=== PATIENT | female | born 1995 | race Caucasian/White ===

== ENCOUNTER 2017-04-21 13:09 | Emergency (ER) | payer OTHER ==
--- NOTE | 2017-04-21 15:44 | RAD ---
INDICATION: Concussion 2 weeks ago COMPARISON: None TECHNIQUE: Noncontrast axial source images were acquired from the skull base to the vertex. FINDINGS: Ventricles/sulci: The ventricles and cisterns are normal in size and configuration for age. Brain parenchyma: There is no focal parenchymal finding, evidence of intracranial mass, or intracranial mass effect. Intracranial hemorrhage:None. Extra-axial spaces: There are no abnormal extra axial fluid collections or evidence of extra-axial mass. Calvarium: There is no calvarial fracture or other calvarial abnormality. Scalp: There is no evidence of scalp or extracalvarial soft tissue abnormality. Paranasal sinuses/mastoid: The paranasal sinuses and mastoid air cells are clear. Other: None. IMPRESSION: NEGATIVE EXAMINATION
--- NOTE | 2017-04-21 16:02 | ED ---
Head Injury - HPI Summary HPI Summary: 21 female presents to ED with complaints of intermittent headache and nausea after a head injury that occurred 2.5 weeks ago. Patient states she was walking down stairs at her home when she slipped and hit her head as she was falling down the stairs and then again at the bottom. She hit the right side and back of her head. States the pain in her head comes and goes and described as sharp and shooting,. Also admits to having nausea. Denies vomiting. States she did not lose consciousness when incident occurred, however she did "black out" and felt very dizzy upon getting up. Those symptoms improved shortly after incident. Patient denies any trouble concentrating or memory loss. Does state she has been studying for [employer] for the past week and noticed symptoms have seemed to worsen since then. Has taken advil with some relief a few days ago. Currently is feeling ok. Patient states she talked to her professor who is a brain institute scientist who recommended she be evaluated and have CT. No other complaints. No PMHx. Takes OCP. Denies anticoagulants, tinnitus and vision changes, photophobia. - History Of Current Complaint Chief Complaint: EDHeadache Stated Complaint: HEADACHE,NAUSSA Time Seen by Provider: 04/21/17 13:22 Hx Obtained From: Patient Mechanism Of Injury: Blunt Trauma Onset/Duration: Started Weeks Ago, Still Present, Worse Since Severity Currently: Mild Severity Initially: Mild Pain Intensity: 4 Pain Scale Used: 0-10 Numeric Location of Head Injury: Parietal - right, Occipital Location: Discrete At: - right paritela and occipital Character: Sharp - stabbing intermittent, Dull - ache when not sharp Aggravating Factor(s): Other: - nothing, studying Alleviating Factor(s): Other: - nothing Associated Signs And Symptoms: Nausea, Headache - Allergies/Home Medications Allergies/Adverse Reactions: Allergies Allergy/AdvReac Type Severity Reaction Status Date / Time No Known Allergies Allergy Verified 04/21/17 15:12 PMH/Surg Hx/FS Hx/Imm Hx Endocrine/Hematology History: Denies: Hx Anticoagulant Therapy, Hx Diabetes Cardiovascular History: Denies: Hx Hypertension Respiratory History: Denies: Hx Asthma - Immunization History Immunizations Up to Date: Yes Infectious Disease History: No Infectious Disease History: Denies: Traveled Outside the [place] in Last 30 Days - Family History Known Family History: Positive: None - Social History Alcohol Use: Daily Alcohol Amount: glass of wine with dinner Substance Use Type: Reports: None Smoking Status (MU): Never Smoked Tobacco Review of Systems Constitutional: Negative Cardiovascular: Negative Respiratory: Negative Positive: Nausea Musculoskeletal: Negative Positive: Headache All Other Systems Reviewed And Are Negative: Yes Physical Exam Triage Information Reviewed: Yes Vital Signs On Initial Exam: Initial Vitals Temp Pulse Resp BP Pulse Ox 98.3 F 79 19 144/93 97 04/21/17 13:14 04/21/17 13:14 04/21/17 13:14 04/21/17 13:14 04/21/17 13:14 128/81 BP improved at discharge Vital Signs Reviewed: Yes Appearance: Positive: Well-Appearing, No Pain Distress, Well-Nourished Skin: Positive: Warm, Skin Color Reflects Adequate Perfusion, Dry. Negative: Cold, Numb, Cyanosis @, Pale, Erythema @ Head/Face: Positive: Normal Head/Face Inspection, Other - no racoon eyes or battles signs Eyes: Positive: Normal, EOMI, JEANNE, Conjunctiva Clear ENT: Positive: Hearing grossly normal, Pharynx normal, TMs normal Neck: Positive: Supple, Nontender, No Lymphadenopathy Respiratory/Lung Sounds: Positive: Clear to Auscultation, Breath Sounds Present. Negative: Rales, Rhonchi, Wheezes Cardiovascular: Positive: Normal, RRR, Pulses are Symmetrical in both Upper and Lower Extremities. Negative: Murmur, Rub Abdomen Description: Positive: Nontender, Soft Bowel Sounds: Positive: Present Musculoskeletal: Positive: Normal, Strength/ROM Intact Neurological: Positive: Normal - memory and concentration intact, Sensory/Motor Intact, Alert, Oriented to Person Place, Time, CN Intact II-III, Reflexes Intact , NV Bundle Intact Distally, Normal Gait, Facial Symmetry, Speech Normal - [place] Coma Scale Best Eye Response: 4 - Spontaneous Best Motor Response: 6 - Obeys Commands Best Verbal Response: 5 - Oriented Coma Scale Total: 15 Diagnostics - Vital Signs Vital Signs Temp Pulse Resp BP Pulse Ox 04/21/17 13:14 98.3 F 79 19 144/93 97 - Laboratory Lab Statement: Any lab studies that have been ordered have been reviewed, and results considered in the medical decision making process. - CT brain CT Interpretation: No Acute Changes - NEGATIVE EXAMINATION CT Interpretation Completed By: Radiologist Head Injury Course/Dx Course Of Treatment: CT obtained due to worsening symptoms >14 day post injury. negative. appears to be suffering from post concussive syndrome. encouraged zofran and NSAIDs. asymptomatic while in ED. rest, fluids and avoid concentrating light stimulating activities. aware of worsening signs and symptoms. follow up for re-eval with PCP to ensure improvement or to check if worsening. no concern for other emergent etiogy at this time. - Diagnoses Differential Diagnosis/HQI/PQRI: Concussion Without LOC, Other - post concussive syndrome, head injury Provider Diagnoses: Concussion, Post concussive syndrome Discharge - Discharge Plan Condition: Good Disposition: HOME Prescriptions: Ondansetron ODT TAB* [Zofran 4 MG Odt TAB*] 4 mg PO Q6H PRN #10 tab.odt PRN Reason: Nausea Patient Education Materials: Post Concussion Syndrome (ED) [facility] - Additional Instructions: Take prescribed medication to help with nausea as needed. Continue ibuprofen, excedrin or tylenol for pain and headache. Drink plenty of fluids, get plenty of rest. Avoid high concentrating, light stimulating activities. Take frequent breaks, especially with studying. Any new or worsening symptoms please seek medical attention as we discussed. Follow up with PCP for re-evaluation on symptoms.
[2017-04-21 16:13] VITALS: BP 128/81
== END 2017-04-21 16:13 | disposition home or self-care (01) ==
LOC: ED 13:09
DX: S06.0X9A Concussion with loss of consciousness of unspecified duration, initial encounter (principal); F07.81 Postconcussional syndrome; W10.9XXA Fall (on) (from) unspecified stairs and steps, initial encounter; Y92.009 Unspecified place in unspecified non-institutional (private) residence as the place of occurrence of the external cause
CPT/HCPCS: 70450; 99282

== ENCOUNTER 2017-08-13 13:18 | Emergency (ER) | payer OTHER ==
[2017-08-13 13:45] VITALS: BP 118/80
--- NOTE | 2017-08-13 14:10 | UC ---
Eye Complaint HPI - HPI Summary HPI Summary: Patient to urgent care today after going to [facility] and seeking refill of her control. Patient mentioned to the provider [facility] that she was having visual changes in her right eye and the past medical history in her family of father having a stroke at age 44 and I and grandmother with early clotting disorder as well. Patient is a nonsmoker. Patient was advised to follow-up at her [facility], [facility] refused to [facility]. Patient went to [facility] who advised her to come to the emergency department for evaluation of headaches and visual changes. Patient came to the urgent care. Patient reports in April hitting her head the front and the back of her head and then having a couple days of post concussive symptoms this continued on to some degree for about 2 weeks when she was advised by one of the educators at the [facility] to get a CT scan of her head at the hospital which she did and that was negative. - History of Current Complaint Chief Complaint: UCEye Stated Complaint: VISION CHANGES Time Seen by Provider: 08/13/17 13:51 Hx Obtained From: Patient Hx Last Menstrual Period: 06/09/2017 ?: No Onset/Duration: Gradual Onset, Lasting Days, Still Present, Worse Since - past 3 -4 days Timing: Constant Severity Initially: Moderate Severity Currently: Moderate Pain Intensity: 4 Pain Scale Used: 0-10 Numeric Aggravating Factor(s): Other - Patient continues to experience some light sensitivity at night when she is driving she needs to wear sunglasses due to the glare of oncoming headlights Alleviating Factor(s): Nothing Associated Signs And Symptoms: Positive: Photophobia, Vision Impairment Right Related History: Trauma - Allergies/Home Medications Allergies/Adverse Reactions: Allergies Allergy/AdvReac Type Severity Reaction Status Date / Time No Known Allergies Allergy Verified 08/13/17 14:38 Home Medications: Home Medications l-Norgest/E.estradiol-E.estrad [Ashlyna 0.15-0.03 &0.01 mg] 1 tab PO DAILY 08/13 [History Confirmed 08/13/17] PMH/Surg Hx/FS Hx/Imm Hx Previously Healthy: Yes Other History Of: Negative For: Anticoagulant Therapy - Surgical History Surgical History: Yes Surgery Procedure, Year, and Place: jaw surgery 2000 - Family History Known Family History: Positive: Other - father from embolic event age 44, grandmother also had some type - Social History Occupation: Student Lives: Dormitory/Roommates Alcohol Use: Occasionally Alcohol Amount: glass of wine with dinner Substance Use Type: None Smoking Status (MU): Never Smoked Tobacco Review of Systems Constitutional: Negative Skin: Negative Eyes: Other - Right eye visual deficits, also complains of floaters and twinkling in right eye ENT: Negative Respiratory: Negative Cardiovascular: Negative Gastrointestinal: Negative Genitourinary: Negative Motor: Negative Neurovascular: Negative Musculoskeletal: Negative Neurological: Negative Psychological: Negative Is Patient Immunocompromised?: No All Other Systems Reviewed And Are Negative: Yes Physical Exam Triage Information Reviewed: Yes Appearance: Well-Appearing, No Pain Distress, Well-Nourished Vital Signs: Initial Vital Signs Temp 99.3 F 08/13/17 13:35 Pulse 76 08/13/17 13:35 Resp 18 08/13/17 13:35 BP 118/80 08/13/17 13:35 Pulse Ox 97 08/13/17 13:35 Vital Signs Reviewed: Yes Eye Exam: Normal Eyes: Positive: Conjunctiva Clear, Other: - perrla, eomi ENT Exam: Normal ENT: Positive: Normal ENT inspection, Hearing grossly normal, Pharynx normal, Sinus tenderness, Uvula midline. Negative: Nasal congestion, Trismus, Muffled voice, Hoarse voice Dental Exam: Normal Neck exam: Normal Neck: Positive: Supple, Nontender, No Lymphadenopathy Respiratory Exam: Normal Respiratory: Positive: Chest non-tender, Lungs clear, Normal breath sounds, No respiratory distress, No accessory muscle use Cardiovascular Exam: Normal Cardiovascular: Positive: RRR, No Murmur, Pulses Normal, Brisk Capillary Refill Musculoskeletal Exam: Normal Musculoskeletal: Positive: Strength Intact, ROM Intact, No Edema Neurological Exam: Normal Neurological: Positive: Alert, Muscle Tone Normal Psychological Exam: Normal Skin Exam: Normal Eye Complaint Course/Dx - Course Course Of Treatment: Reviewed case with attending physician at urgent care. Plan to send patient to hospital for further evaluation - Differential Dx/Diagnosis Provider Diagnoses: headaches, visual changes in right eye Discharge - Sign-Out/Discharge Documenting (check all that apply): Discharge - Discharge Plan Condition: Stable Disposition: [facility] Patient Education Materials: Concussion (ED), Post Concussion Syndrome (ED), Blurred Vision (ED) Referrals: [facility] [Primary Care Provider] - 2 Days Additional Instructions: Please go directly to the [facility] emergency department for further evaluation and symptoms - Billing Disposition and Condition Condition: STABLE Disposition: EMTALA
== END 2017-08-13 14:15 | disposition short-term general hospital (02) ==
LOC: UCEAST 13:18
DX: R51 Headache (principal); H53.9 Unspecified visual disturbance
CPT/HCPCS: 99211; G0463